=== PATIENT | male | born 1960 | race Hispanic/Latino ===

== ENCOUNTER 2020-06-11 11:10 | Inpatient (IN) | payer OTHER ==
[~2020-06-11] VITALS: Ht 175.3 cm; Wt 95.9 kg
[2020-06-11 11:42] LABS: BASOPHILS % (AUTO) 0.1 % (0.0-5.0); EOSINOPHILS % (AUTO) 1.2 % (0.0-8.0); HEMATOCRIT 46.8 % (42-54); LYMPHOCYTES % (AUTO) 24.8 % (21.0-51.0); MEAN CORPUSCULAR HEMOGLOBIN 32.6 pg (27.0-33.0); MEAN CORPUSCULAR HGB CONC 34.2 g/dL (32.0-36.0); MEAN CORPUSCULAR VOLUME 95.3 fL (79-99); MONOCYTES % (AUTO) 6.9 % (3.0-13.0); NEUTROPHILS % (AUTO) 66.9 % (40.0-77.0); PLATELET COUNT (AUTO) 190 K/uL (130-400); RED BLOOD CELL COUNT(AUTO) 4.91 MIL/uL (4.50-6.20); RED CELL DISTRIBUTION WIDTH 13.2 % (11.0-15.5); WHITE BLOOD COUNT (AUTO) 7.8 K/uL (4.8-10.8)
[2020-06-11 11:53] LABS: CREATININE 1.1 mg/dL (0.5-1.5); POTASSIUM 4.6 mmol/L (3.5-5.1)
[2020-06-11 11:56] LABS: INR 1.01 (0.85-1.15); PARTIAL THROMBOPLASTIN TIME 25.4 SEC (26.3-35.5); PROTHROMBIN TIME 10.9 SEC (9.6-11.6)
[2020-06-11 11:59] LABS: ALBUMIN 3.7 g/dL (3.5-5.0); BILIRUBIN,TOTAL 1.1 mg/dL (0.2-1.0); TOTAL PROTEIN, SERUM 7.2 g/dL (6.0-8.3)
[2020-06-11] MEDS ORDERED: ACETAMINOPHEN 325 MG TAB PO PRN (13:30)
[2020-06-11] MEDS ORDERED: NITROGLYCERIN 0.4 MG SL TAB SL PRN (13:30)
[2020-06-11] MEDS ORDERED: ONDANSETRON HCL 4 MG/2 ML VIAL IV PRN (13:30)
[2020-06-11] MEDS ORDERED: HYDRALAZINE HCL 20 MG/ML VIAL IV PRN (13:30)
[2020-06-11] MEDS ORDERED: LACTULOSE 20 GM/30 ML UDCUP PO PRN (13:30)
[2020-06-11] MEDS ORDERED: POTASSIUM CHLORIDE 20MEQ/100ML 100 ML IV PRN (13:45)
[2020-06-11] MEDS ORDERED: LISINOPRIL 40 MG TABLET PO SCH (14:01)
[2020-06-11] MEDS ORDERED: FUROSEMIDE 10 MG/ML 2ML VIAL IV ONE (14:45)
[2020-06-11] MEDS ORDERED: LISINOPRIL 10 MG TABLET PO SCH ×2 (16:00)
[2020-06-11] MEDS ORDERED: HYDROCHLOROTHIAZIDE 25 MG TABLET PO SCH ×2 (16:00)
[2020-06-11] MEDS ORDERED: HYDROCHLOROTHIAZIDE 25 MG TABLET ONE (18:06)
[2020-06-11] MEDS ORDERED: LISINOPRIL 5 MG TABLET ONE (18:06)
[2020-06-11 18:39] LABS: ABG BASE EXCESS 1.6 mmol/L (-2.0-3.0); ABG HCO3 25.6 mmol/L (21.0-28.0); ABG OXYGEN SATURATION 92.7 % (95.0-99.0); ABG PCO2 38 mmHg (35-48)
[2020-06-11] MEDS ORDERED: HYDRALAZINE HCL 20 MG/ML VIAL ONE (19:32)
[2020-06-11] MEDS ORDERED: FUROSEMIDE 10 MG/ML 4ML VIAL IV SCH (20:00)
[2020-06-11] MEDS ORDERED: FUROSEMIDE 40 MG TABLET PO SCH (21:00)
[2020-06-11] MEDS ORDERED: FAMOTIDINE 20MG TAB 20 MG TAB PO SCH (21:00)
[2020-06-11 21:06] LABS: AMPHET/METH SCREEN,URINE NEGATIVE (NEGATIVE); BARBITURATE SCREEN, URINE NEGATIVE (NEGATIVE); BENZODIAZEPINES SCREEN,URINE NEGATIVE (NEGATIVE); CANNABINOID SCREEN,URINE NEGATIVE (NEGATIVE); COCAINE SCREEN,URINE NEGATIVE (NEGATIVE); OPIATE SCREEN,URINE NEGATIVE (NEGATIVE); PHENCYCLIDINE SCREEN,URINE NEGATIVE (NEGATIVE)
--- NOTE | 2020-06-11 22:50 | NUR ---
Admission Assessment Received pt from ED per satisher, pleasantly conversant. Routine admission assessment done, plan of care discuss, updated with all test done in ED, confirmed seen by explosives handler Dr. Manuel in ED with notification of plan PPM placement early this week. I also made him aware pending consult with a medicinal chemist Dr. Leone due to his issue of desaturation. Pt stated has not been feeling well x 10days, no PCP but went to see a physician in [place] can't recall her name, advise to come to the hospital. Per pt stated he never get sick, had a complete physical once in [place] job related, otherwise no medical/surgical history. Re: Flu & Pneumonia vaccination per pt if he needs it he is OK with it. I went ahead & gave him a pamphlet re: the vaccination & made him aware we will give it in the morning, agreed. Pt currently denies discomfort/pain. Reported from central monitor pt has a complete heart block, pt asymptomatic, cardiology is aware on this rhythm noted per consultation report.
[2020-06-11 23:24] VITALS: BP 165/71
[2020-06-12 03:40] VITALS: BP 145/56
[2020-06-12 05:29] LABS: BASOPHILS % (AUTO) 0.3 % (0.0-5.0); EOSINOPHILS % (AUTO) 1.4 % (0.0-8.0); HEMATOCRIT 46.3 % (42-54); LYMPHOCYTES % (AUTO) 22.1 % (21.0-51.0); MEAN CORPUSCULAR HEMOGLOBIN 31.9 pg (27.0-33.0); MEAN CORPUSCULAR HGB CONC 33.7 g/dL (32.0-36.0); MEAN CORPUSCULAR VOLUME 94.7 fL (79-99); MONOCYTES % (AUTO) 7.8 % (3.0-13.0); NEUTROPHILS % (AUTO) 68.1 % (40.0-77.0); PLATELET COUNT (AUTO) 183 K/uL (130-400); RED BLOOD CELL COUNT(AUTO) 4.89 MIL/uL (4.50-6.20); WHITE BLOOD COUNT (AUTO) 7.9 K/uL (4.8-10.8)
[2020-06-12 05:47] LABS: ALBUMIN 3.4 g/dL (3.5-5.0); BILIRUBIN,TOTAL 1.2 mg/dL (0.2-1.0); CREATININE 0.9 mg/dL (0.5-1.5); TOTAL PROTEIN, SERUM 6.7 g/dL (6.0-8.3)
[2020-06-12 05:50] LABS: B-TYPE NATRIURETIC PEPTIDE 584 pg/mL (0-100)
[2020-06-12 07:30] VITALS: BP 169/93
--- NOTE | 2020-06-12 08:27 | NUR ---
dr perry informed over phone of new consult; no orders received.
[2020-06-12] MEDS ORDERED: LISINOPRIL 40 MG TABLET PO SCH (09:00)
[2020-06-12] MEDS ORDERED: ENOXAPARIN SODIUM 30 MG/0.3 ML SQ SCH (09:00)
[2020-06-12] MEDS ORDERED: LISINOPRIL 10 MG TABLET PO SCH (09:00)
[2020-06-12] MEDS: ENOXAPARIN SODIUM 40 MG/0.4 ML SYRINGE SQ SCH (10:00)
[2020-06-12] MEDS ORDERED: ENOXAPARIN SODIUM 40 MG/0.4 ML SYRINGE SQ ONE (10:28)
[2020-06-12 10:55] VITALS: BP 182/96
[2020-06-12] MEDS: HYDROCHLOROTHIAZIDE 25 MG TABLET PO SCH (10:59)
[2020-06-12] MEDS: MAGNESIUM 2GM PREMIX 50ML 50 ML IV PRN (11:02)
--- NOTE | 2020-06-12 14:01 | NUR ---
INITIAL SW spoke with patient and spouse. 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 Patient has no home services or DME. He is able to drive and complete ADL's independently. Patient has no PCP. Pharmacy is [facility] located on [facility] in [place]. DCP is home. Patient has no insurance or benefits. He is a [place] citizen and is employed. Patient was provided with community resources for post hospitalization follow up. Patient was also provided with Good RX card for prescriptions and educated on [facility] $4 medication program and [facility] $5 medication program. Patient is being assisted by [employer] for financial matters. Addendum: 06/12/20 at 1403 by VERONICA FRANKLIN Amended: Links added.
[2020-06-12 15:55] VITALS: BP 155/84
[2020-06-12 19:45] VITALS: BP 164/92
--- NOTE | 2020-06-12 20:00 | NUR ---
BRADYCARDIA Pt remains on 3rd degree block,hr 38.remains asymptomatic.Intructed to keep hob up 45 degrees at all times.On 2 lpm via Nc at hs. Addendum: 06/13/20 at 0028 by GEOFF QUINTANA RN RN Amended: Links added.
[2020-06-13] VITALS (11 sets, daily range): BP systolic 130–211; BP diastolic 62–119
--- NOTE | 2020-06-13 05:33 | NUR ---
SHOWERED Pt took a shower,isabella well.
[2020-06-13 06:06] LABS: BASOPHILS % (AUTO) 0.3 % (0.0-5.0); EOSINOPHILS % (AUTO) 1.8 % (0.0-8.0); HEMATOCRIT 46.3 % (42-54); LYMPHOCYTES % (AUTO) 22.4 % (21.0-51.0); MEAN CORPUSCULAR HEMOGLOBIN 31.8 pg (27.0-33.0); MEAN CORPUSCULAR HGB CONC 33.5 g/dL (32.0-36.0); MEAN CORPUSCULAR VOLUME 94.9 fL (79-99); MONOCYTES % (AUTO) 8.8 % (3.0-13.0); NEUTROPHILS % (AUTO) 66.5 % (40.0-77.0); PLATELET COUNT (AUTO) 175 K/uL (130-400); RED BLOOD CELL COUNT(AUTO) 4.88 MIL/uL (4.50-6.20); RED CELL DISTRIBUTION WIDTH 13.2 % (11.0-15.5); WHITE BLOOD COUNT (AUTO) 6.1 K/uL (4.8-10.8)
[2020-06-13 06:29] LABS: ALBUMIN 3.5 g/dL (3.5-5.0); BILIRUBIN,TOTAL 1.2 mg/dL (0.2-1.0); CREATININE 1.2 mg/dL (0.5-1.5); POTASSIUM 4.2 mmol/L (3.5-5.1); TOTAL PROTEIN, SERUM 6.9 g/dL (6.0-8.3)
--- NOTE | 2020-06-13 07:45 | NUR ---
AM ASSESSMENT PT SITTING IN CHAIR, WATCHING TV. A/O X 3. NO SOB. NO DISTRESS NOTED. DENIES CHEST PAIN OR DISCOMFORT. DENIES LIGHT HEADEDNESS AND /OR DIZZINESS. TELE: 3rd DEGREE AV BLOCK. PENDING CONSULT W/DR ANG TODAY. DENIES N/V AND/OR DIARRHEA. UP AD CHUCK. INSTRUCTED TO CALL FOR ASSISTANCE. CALL FABRICIO W/IN REACH.
[2020-06-13] MEDS: HYDROCHLOROTHIAZIDE 25 MG TABLET PO SCH (08:17)
[2020-06-13] MEDS: ENOXAPARIN SODIUM 40 MG/0.4 ML SYRINGE SQ SCH (08:17)
[2020-06-13] MEDS: LISINOPRIL 20 MG TABLET PO SCH (10:14)
[2020-06-13] MEDS ORDERED: DOPAMINE 800MG/D5 250ML 250 ML IV ONE (11:41)
[2020-06-13] MEDS ORDERED: DOPAMINE 800MG/D5 250ML 250 ML IV PRN (11:45)
[2020-06-13] MEDS ORDERED: VANCOMYCIN 1GM+NS 250ML 250 ML IV PRN (13:45)
[2020-06-13] MEDS ORDERED: HYDRALAZINE HCL 20 MG/ML VIAL IV PRN (20:28)
--- NOTE | 2020-06-13 21:17 | NUR ---
Pt. is awake alert oriented sitting up in chair watching tv and talking to at bedside bp 210/110, no c/o pain headache or discomfort. Escorted back to bed for resting bp 210/89 placed on 02 Nc. Reported elevated bp to hospitalist. Medicated as ordered BP 177/76 after IV med. Pt. comfortable in bed CHOUDHARY strongly Addendum: 06/13/20 at 2124 by ELKE JERRY RN RN HR 39 unchanged.
[2020-06-13] MEDS: AMLODIPINE BESYLATE 5 MG TAB PO SCH (21:27)
[2020-06-13] MEDS ORDERED: HYDRALAZINE HCL 20 MG/ML VIAL IV SCH (21:30)
[2020-06-14 03:35] VITALS: BP 140/75
[2020-06-14 05:20] LABS: BASOPHILS % (AUTO) 0.4 % (0.0-5.0); EOSINOPHILS % (AUTO) 2.3 % (0.0-8.0); HEMATOCRIT 46.6 % (42-54); LYMPHOCYTES % (AUTO) 24.6 % (21.0-51.0); MEAN CORPUSCULAR HGB CONC 33.9 g/dL (32.0-36.0); MEAN CORPUSCULAR VOLUME 94.3 fL (79-99); MONOCYTES % (AUTO) 9.5 % (3.0-13.0); PLATELET COUNT (AUTO) 204 K/uL (130-400); RED BLOOD CELL COUNT(AUTO) 4.94 MIL/uL (4.50-6.20); RED CELL DISTRIBUTION WIDTH 12.9 % (11.0-15.5); WHITE BLOOD COUNT (AUTO) 8.4 K/uL (4.8-10.8)
[2020-06-14 05:43] LABS: ALBUMIN 3.4 g/dL (3.5-5.0); BILIRUBIN,TOTAL 1.2 mg/dL (0.2-1.0); CREATININE 1.1 mg/dL (0.5-1.5); MAGNESIUM 1.6 mg/dL (1.80-2.40); POTASSIUM 3.8 mmol/L (3.5-5.1); TOTAL PROTEIN, SERUM 6.8 g/dL (6.0-8.3)
--- NOTE | 2020-06-14 07:45 | NUR ---
AM ASSESSMENT PT LAYING IN BED, WATCHING TV. A/O X 3. NO SOB. NO DISTRESS NOTED. O2 NC @ 2L. DENIES CHEST PAIN OR DISCOMFORT. DENIES LIGHT HEADEDNESS AND/OR DIZZINESS. TELE: 3rd DEGREE BLOCK. DENIES N/V AND/OR DIARRHEA. NPO STATUS REINFORCED. PT PENDING TO HAVE PPM TODAY. UP AD CHUCK. INSTRUCTED TO CALL FOR ASSISTANCE. CALL FABRICIO W/IN REACH.
[2020-06-14 08:00] VITALS: BP 170/75
[2020-06-14] MEDS: LISINOPRIL 20 MG TABLET PO SCH (08:19)
[2020-06-14] MEDS: HYDROCHLOROTHIAZIDE 25 MG TABLET PO SCH (08:20)
[2020-06-14] MEDS: ENOXAPARIN SODIUM 40 MG/0.4 ML SYRINGE SQ SCH (08:20)
[2020-06-14] MEDS: AMLODIPINE BESYLATE 5 MG TAB PO SCH (08:20)
--- NOTE | 2020-06-14 11:12 | NUR ---
MD VISIT DR ANG IN TO SEE PT. PT'S SPOUSE @ BEDSIDE. INFORMED PT & PT'S SPOUSE PPM PLACEMENT PLANNED FOR TODAY TO BE CXD PENDING LYME DISEASE RESULTS.
[2020-06-14 12:00] VITALS: BP 171/74
[2020-06-14 16:00] VITALS: BP 171/81
[2020-06-14 20:10] VITALS: BP 169/56
[2020-06-14 23:21] VITALS: BP 150/72
[2020-06-15 04:26] VITALS: BP 158/60
[2020-06-15 05:35] LABS: BASOPHILS % (AUTO) 0.3 % (0.0-5.0); EOSINOPHILS % (AUTO) 2.3 % (0.0-8.0); HEMATOCRIT 47.8 % (42-54); LYMPHOCYTES % (AUTO) 27.4 % (21.0-51.0); MEAN CORPUSCULAR HEMOGLOBIN 32.3 pg (27.0-33.0); MEAN CORPUSCULAR HGB CONC 34.3 g/dL (32.0-36.0); MEAN CORPUSCULAR VOLUME 94.1 fL (79-99); MONOCYTES % (AUTO) 9.3 % (3.0-13.0); NEUTROPHILS % (AUTO) 60.4 % (40.0-77.0); PLATELET COUNT (AUTO) 184 K/uL (130-400); RED BLOOD CELL COUNT(AUTO) 5.08 MIL/uL (4.50-6.20); RED CELL DISTRIBUTION WIDTH 12.7 % (11.0-15.5); WHITE BLOOD COUNT (AUTO) 7.4 K/uL (4.8-10.8)
[2020-06-15 05:46] LABS: POTASSIUM 3.9 mmol/L (3.5-5.1)
[2020-06-15] MEDS: MAGNESIUM 2GM PREMIX 50ML 50 ML IV PRN (06:02)
[2020-06-15 08:00] VITALS: BP 159/60
[2020-06-15] MEDS: ENOXAPARIN SODIUM 40 MG/0.4 ML SYRINGE SQ SCH (09:00)
--- NOTE | 2020-06-15 11:02 | NUR ---
DR. ANG WAS CALLED FOR STATUS OF DIET . KAROLINE FOR A CLEAR LIQ DIET. FOR NOON
[2020-06-15 12:00] VITALS: BP 154/67
[2020-06-15] MEDS: AMLODIPINE BESYLATE 5 MG TAB PO SCH (15:30)
[2020-06-15] MEDS: HYDROCHLOROTHIAZIDE 25 MG TABLET PO SCH (15:30)
[2020-06-15] MEDS: LISINOPRIL 20 MG TABLET PO SCH (15:30)
--- NOTE | 2020-06-15 15:50 | NUR ---
CALLED [facility] , FOR THE CASE OF PLACEMENT OF PACEMAKER . PER DR ANG FOR EARLY AM .
[2020-06-15 16:00] VITALS: BP 155/74
--- NOTE | 2020-06-15 16:50 | NUR ---
DR. ANG HERE, AND SPOKE WITH PT OF PLAN OF CARE, [facility] IN [facility] FOR EARLY AM PROCEDURE FOR PLACEMENT OF PACEMAKER
[2020-06-15 20:21] VITALS: BP 172/63
[2020-06-15] MEDS: ENALAPRILAT DIHYDRATE 1.25MG/ML 1ML VIAL IV SCH (20:56)
[2020-06-16] VITALS (12 sets, daily range): BP systolic 125–174; BP diastolic 59–94
[2020-06-16 05:47] LABS: BASOPHILS % (AUTO) 0.3 % (0.0-5.0); EOSINOPHILS % (AUTO) 2.1 % (0.0-8.0); HEMATOCRIT 52.9 % (42-54); LYMPHOCYTES % (AUTO) 31.2 % (21.0-51.0); MEAN CORPUSCULAR HEMOGLOBIN 31.7 pg (27.0-33.0); MEAN CORPUSCULAR HGB CONC 33.5 g/dL (32.0-36.0); MEAN CORPUSCULAR VOLUME 94.6 fL (79-99); MONOCYTES % (AUTO) 9.3 % (3.0-13.0); PLATELET COUNT (AUTO) 220 K/uL (130-400); RED BLOOD CELL COUNT(AUTO) 5.59 MIL/uL (4.50-6.20); RED CELL DISTRIBUTION WIDTH 12.7 % (11.0-15.5); WHITE BLOOD COUNT (AUTO) 7.2 K/uL (4.8-10.8)
[2020-06-16 06:02] LABS: CREATININE 1.2 mg/dL (0.5-1.5); POTASSIUM 4.2 mmol/L (3.5-5.1)
[2020-06-16] MEDS ORDERED: LIDOCAINE HCL 1% MDV 50ML VIAL ONE (07:09)
[2020-06-16] MEDS ORDERED: BUPIVACAINE/PF 0.25% 30ML VIAL IJ ONE (07:09)
[2020-06-16] MEDS ORDERED: MEPERIDINE-PF 25 MG/ML SYG ONE ×2 (07:09→07:51)
[2020-06-16] MEDS ORDERED: MIDAZOLAM HCL 1 MG/ML 2ML VIAL ONE ×2 (07:09→07:51)
[2020-06-16] MEDS ORDERED: VANCOMYCIN 1GM+NS 250ML 500 ML IV ONE (07:09)
[2020-06-16] MEDS ORDERED: VANCOMYCIN 1GM+NS 250ML 250 ML IV ONE (07:29)
[2020-06-16] MEDS ORDERED: IODIXANOL 320 MG/ML 100 ML VIAL ONE (08:14)
[2020-06-16] MEDS ORDERED: ACETAMINOPHEN-CODEINE 300/30MG TAB PO PRN (09:00)
[2020-06-16] MEDS: HYDROCHLOROTHIAZIDE 25 MG TABLET PO SCH (09:46)
[2020-06-16] MEDS: AMLODIPINE BESYLATE 5 MG TAB PO SCH (09:46)
[2020-06-16] MEDS: LISINOPRIL 20 MG TABLET PO SCH (09:46)
[2020-06-16] MEDS: ENALAPRILAT DIHYDRATE 1.25MG/ML 1ML VIAL IV SCH (19:48)
[2020-06-17 00:04] VITALS: BP 131/89
[2020-06-17 04:04] VITALS: BP 130/88
[2020-06-17 05:42] LABS: BASOPHILS % (AUTO) 0.4 % (0.0-5.0); EOSINOPHILS % (AUTO) 1.8 % (0.0-8.0); HEMATOCRIT 51.9 % (42-54); LYMPHOCYTES % (AUTO) 26.3 % (21.0-51.0); MEAN CORPUSCULAR HEMOGLOBIN 31.4 pg (27.0-33.0); MEAN CORPUSCULAR HGB CONC 33.7 g/dL (32.0-36.0); MEAN CORPUSCULAR VOLUME 93.2 fL (79-99); MONOCYTES % (AUTO) 8.7 % (3.0-13.0); NEUTROPHILS % (AUTO) 62.5 % (40.0-77.0); PLATELET COUNT (AUTO) 202 K/uL (130-400); RED BLOOD CELL COUNT(AUTO) 5.57 MIL/uL (4.50-6.20); RED CELL DISTRIBUTION WIDTH 12.6 % (11.0-15.5); WHITE BLOOD COUNT (AUTO) 6.7 K/uL (4.8-10.8)
[2020-06-17 06:08] LABS: POTASSIUM 4.1 mmol/L (3.5-5.1)
[2020-06-17 07:00] VITALS: BP 109/84
[2020-06-17] MEDS: ENALAPRILAT DIHYDRATE 1.25MG/ML 1ML VIAL IV SCH (08:13)
[2020-06-17] MEDS: LISINOPRIL 20 MG TABLET PO SCH (09:52)
[2020-06-17] MEDS: HYDROCHLOROTHIAZIDE 25 MG TABLET PO SCH (09:52)
[2020-06-17] MEDS: AMLODIPINE BESYLATE 5 MG TAB PO SCH (09:53)
[2020-06-17 11:00] VITALS: BP 122/83
[2020-06-17] MEDS ORDERED: LISI-613 PO (13:33)
[2020-06-17] MEDS ORDERED: HYDR25TA PO (13:33)
[2020-06-17 15:00] VITALS: BP 111/83
--- NOTE | 2020-06-20 10:22 | NUR ---
TRANSITIONAL CARE -- POST-DISCHARGE NOTE NO ANSWER to patient's phone number or spouse's phone number on file. Left voicemail identifying myself and requesting a callback.
== END 2020-06-17 17:05 | disposition home or self-care (01) | DRG 242 ==
LOC: EDH 11:10 → EDHIP 11:11 → 4CH 22:19
PROVIDERS: ADMIT Internal Medicine; ATTEND Internal Medicine
PROC: 0JH606Z Insertion of Pacemaker, Dual Chamber into Chest Subcutaneous Tissue and Fascia, Open Approach (ICD-10-PCS; principal; 2020-06-16)
PROC: 02H63JZ Insertion of Pacemaker Lead into Right Atrium, Percutaneous Approach (ICD-10-PCS; 2020-06-16)
PROC: 02HK3JZ Insertion of Pacemaker Lead into Right Ventricle, Percutaneous Approach (ICD-10-PCS; 2020-06-16)
DX: I44.2 Atrioventricular block, complete (principal); I50.31 Acute diastolic (congestive) heart failure; I11.0 Hypertensive heart disease with heart failure; I16.0 Hypertensive urgency; Z68.34 Body mass index [BMI] 34.0-34.9, adult; E66.9 Obesity, unspecified; Z20.828 Contact with and (suspected) exposure to other viral communicable diseases; Z82.49 Family history of ischemic heart disease and other diseases of the circulatory system; E83.42 Hypomagnesemia; G47.33 Obstructive sleep apnea (adult) (pediatric); Z82.41 Family history of sudden cardiac death; Z87.891 Personal history of nicotine dependence
CPT/HCPCS: 33208; 36415; 36600; 71045; 80048; 80053; 80305; 82550; 82803; 83735; 83880; 84443; 84484; 85025; 85610; 85730; 86618; 87426; 93005; 93306; 93356; 94660; 99156; 99157; C1785; G0378; J0360; J1265; J1650; J2175; J2250; J3370; J3475; J3490; Q9967; U0003